=== PATIENT | female | born 1995 | race Caucasian/White ===

== ENCOUNTER 2024-05-01 22:35 | Emergency (ER) | payer MEDICAID ==
[~2024-05-01] VITALS: Ht 165.1 cm; Wt 76.0 kg
[2024-05-02] MEDS: ALBUTEROL (0.083%) 2.5MG/3ML NEB HHN ONE (02:07)
[2024-05-02 02:09] VITALS: PULSE 127; RESP 20; O2SAT 99
[2024-05-02] MEDS ORDERED: BENZ100C86 MT (02:33)
[2024-05-02 02:50] VITALS: BP 122/74; PULSE 85; RESP 17; TEMP 36.72516; O2SAT 100
== END 2024-05-02 03:25 | disposition home or self-care (01) ==
LOC: ER 22:35
DX: R05.9 Cough, unspecified (principal); R06.2 Wheezing
CPT/HCPCS: 99283; 94640; Z7610 ×3